=== PATIENT | male | born 1970 | race African-American/Black ===

== ENCOUNTER 2017-07-16 21:50 | Emergency (ER) | payer SELFPAY ==
[~2017-07-16] VITALS: Ht 167.6 cm; Wt 75.0 kg
[2017-07-16 22:05] VITALS: BP 133/76; PULSE 72; RESP 20; TEMP 97.7; O2SAT 97
[2017-07-16] MEDS ORDERED: KETOROLAC TROMETHAMINE 30 MG/ML (IVP) VIAL IV PUSH ONE (22:30)
[2017-07-16] MEDS ORDERED: SODIUM CHLORIDE 0.9% FLUSH 10 ML FLUSH IVF PRN ×2 (22:30→22:45)
[2017-07-16] MEDS ORDERED: CLINDAMYCIN INJ 900 MG in SODIUM CHLORIDE 0.9% INJ 100 ML IV ONE (22:30)
--- NOTE | 2017-07-16 22:33 | PD ---
HPI Chief Complaint: Fall Time Seen by Provider: 22:27 Travel History International Travel<30 days: No Contact w/Intl Traveler<30days: No Traveled to known affect area: No History of Present Illness HPI 46-year-old male presents to the emergency department for complaint of facial swelling and jaw pain after non-syncopal trip and fall yesterday. Patient states he tripped fell forward and landed hitting his right side of the face and jaw. Patient states that he thinks he sustained a large laceration of the tooth may have punctured his skin because there was quite amount of bleeding and jaw pain. Patient states he has been able to remain hydrated drinking fluids and did take ibuprofen 1 dose. Patient's last tetanus immunization was 3 years ago. Patient denies diabetes or any chronic medical conditions and takes no prescription medications. Patient on no blood thinning agents. Patient states he did not injure his neck did not lose consciousness and denies other injury being sustained. Patient presents now for further evaluation rates his pain 8/10 in intensity. Movement and palpation worsened his symptoms and unable to identify alleviating factors PFSH Past Medical History Narrative Medical Negative past medical history negative surgical history positive tobacco use; nursing notes reviewed Medical History: Denies Significant Hx Tetanus Vaccination: Unknown Influenza Vaccination: No Past Surgical History Surgical History: No Previous Surgery Social History Alcohol Use: Yes Tobacco Use: Yes Substance Use: No Allergies-Medications (Allergen,Severity, Reaction): Coded Allergies: No Known Allergies (Unverified , 07/16/17) Reported Meds & Prescriptions Reported Meds & Active Scripts Active Peridex Liq (Chlorhexidine Gluconate (Mouth) Liq) 0.12% Soln 15 Ml SWISH-SPIT BID Augmentin (Amoxicillin-Clavulanate) 875-125 Mg Tab 1 Tab PO BID 10 Days Percocet (Oxycodone-Acetaminophen) 5-325 mg Tab 1 Tab PO Q6H PRN Review of Systems Except as stated in HPI: all other systems reviewed are Neg General / Constitutional: No: Fever, Chills Eyes: No: Visual changes HENT: Positive: Dental Difficulties, Other, No: Headaches, Neck Pain Cardiovascular: No: Chest Pain or Discomfort Respiratory: No: Shortness of Breath Gastrointestinal: No: Vomiting, Abdominal Pain (Mandible pain) Genitourinary: No: Flank Pain Musculoskeletal: No: Pain Skin: No Rash Neurologic: No: Weakness Psychiatric: No: Anxiety Hematologic/Lymphatic: No: Lymph Node Enlargement Physical Exam Narrative GENERAL: Well-developed well-nourished male no acute distress no respiratory distress; GCS 15 SKIN: Warm and dry. HEAD: Normocephalic. EYES: No scleral icterus. No injection or drainage. ENT: Mucous membranes moist airways patent no loose dentition buccal mucosa with subacute 3 cm laceration with macerated and devitalized tissue no active bleeding soft tissue swelling of the right cheek and puncture wound noted at the surface of the right cheek mandible tenderness no deformity. Dentition appears intact. No apparent dental malocclusion. NECK: Supple, trachea midline. No JVD or lymphadenopathy. Trachea is midline with no submandibular mass or lymphadenopathy. CARDIOVASCULAR: Regular rate and rhythm without murmurs, gallops, or rubs. RESPIRATORY: Breath sounds equal bilaterally. No accessory muscle use. GASTROINTESTINAL: Abdomen soft, non-tender, nondistended. MUSCULOSKELETAL: No cyanosis, or edema. BACK: Nontender without obvious deformity. No CVA tenderness. Data Data Last Documented VS Vital Signs Date Time Temp Pulse Resp B/P (MAP) Pulse Ox O2 Delivery O2 Flow Rate FiO2 07/16/17 22:05 97.7 72 20 133/76 (95) 97 Orders Orders Basic Metabolic Panel (Bmp) (07/16/17 22:27) Complete Blood Count With Diff (07/16/17 22:27) Iv Access Insert/Monitor (07/16/17 22:27) Clindamycin Inj (Cleocin Inj) (07/16/17 22:30) Sodium Chloride 0.9% Flush (Ns Flush) (07/16/17 22:30) Ketorolac Inj (Toradol Inj) (07/16/17 22:30) Blood Culture (07/16/17 22:27) Ct Facial Bones W/O Iv Cont (07/16/17 22:33) Sodium Chloride 0.9% Flush (Ns Flush) (07/16/17 22:45) Amoxicil-Clavulanate (Augmentin) (07/17/17 00:00) Ed Discharge Order (07/16/17 23:49) Labs Laboratory Tests Test 07/16/17 22:45 White Blood Count 9.0 TH/MM3 Red Blood Count 5.14 MIL/MM3 Hemoglobin 14.7 GM/DL Hematocrit 43.7 % Mean Corpuscular Volume 84.9 FL Mean Corpuscular Hemoglobin 28.5 PG Mean Corpuscular Hemoglobin Concent 33.6 % Red Cell Distribution Width 13.7 % Platelet Count 271 TH/MM3 Mean Platelet Volume 8.5 FL Neutrophils (%) (Auto) 60.7 % Lymphocytes (%) (Auto) 28.5 % Monocytes (%) (Auto) 9.2 % Eosinophils (%) (Auto) 1.0 % Basophils (%) (Auto) 0.6 % Neutrophils # (Auto) 5.5 TH/MM3 Lymphocytes # (Auto) 2.6 TH/MM3 Monocytes # (Auto) 0.8 TH/MM3 Eosinophils # (Auto) 0.1 TH/MM3 Basophils # (Auto) 0.1 TH/MM3 CBC Comment DIFF FINAL Differential Comment Blood Urea Nitrogen 8 MG/DL Creatinine 0.90 MG/DL Random Glucose 87 MG/DL Calcium Level 9.1 MG/DL Sodium Level 139 MEQ/L Potassium Level 4.3 MEQ/L Chloride Level 103 MEQ/L Carbon Dioxide Level 26.9 MEQ/L Anion Gap 9 MEQ/L Estimat Glomerular Filtration Rate 90 ML/MIN MDM Medical Decision Making Medical Screen Exam Complete: Yes Emergency Medical Condition: Yes Medical Record Reviewed: Yes Interpretation(s) Last Impressions Maxillofacial CT 07/16/172232 Signed Impressions: CONCLUSION: 1. Soft tissue swelling and gas collection adjacent to the right mandible with out definite fracture. CBC & BMP Diagram 07/16/17 22:45 Calcium Level 9.1 Vital Signs Date Time Temp Pulse Resp B/P (MAP) Pulse Ox O2 Delivery O2 Flow Rate FiO2 07/16/17 22:05 97.7 72 20 133/76 (95) 97 Differential Diagnosis Facial abscess, mandible fracture, dental fracture, cellulitis Narrative Course IV access obtained specimens collected and sent for resulting patient administered Toradol 30 mg IV clindamycin 900 mg IV and normal saline [address] facial bones Imaging study shows soft tissue gas and soft tissue swelling mandible does not appear to have a fracture dentition appears intact. Patient given Augmentin 875. Call placed to craniofacial surgeon Dr. Edmonds who recommends patient to see him in his office on Monday at [phone] as well as Augmentin add Peridex solution for oral hygiene Diagnosis Primary Impression: Cutaneous abscess of face Additional Impression: Laceration without foreign body of oral cavity, initial encounter Referrals: Laith Edmonds DMD 2 days Monday morning; [phone] call office to be seen Monday Patient Instructions: General Instructions Additional Instructions: Complete course of antibiotic as prescribed Use oral solution to swish and expectorate for oral hygiene Follow-up with craniofacial surgeon Dr. Edmonds Monday call office [phone] Tylenol every 4 hours as needed for fever 100.4F or greater Ibuprofen every 6-8 hours as needed for fever 100.4F or greater May take pain medication as prescribed as needed for pain greater than 5/10 intensity Return to the emergency department for concerns or change in condition Med/Other Pt SpecificInfo: Prescription(s) given Scripts Oxycodone-Acetaminophen (Percocet) 5-325 mg Tab 1 TAB PO Q6H Y for PAIN, #5 TAB 0 Refills Prov: Elana Conner MD 07/16/17 Chlorhexidine Gluconate (Mouth) Liq (Peridex Liq) 0.12% Soln 15 ML SWISH-SPIT BID, #473 ML 0 Refills Prov: Elana Conner MD 07/16/17 Amoxicillin-Clavulanate (Augmentin) 875-125 Mg Tab 1 TAB PO BID for Infection for 10 Days, #20 TAB 0 Refills Prov: Elana Conner MD 07/16/17 Disposition: 01 DISCHARGE HOME Condition: Stable Elana Conner MD July 16, 2017 22:32
[2017-07-16 22:51] LABS: AUTOMATED NEUTROPHIL # 5.5 TH/MM3 (1.8-7.7); BASOPHIL # 0.1 TH/MM3 (0-0.2); BASOPHIL % 0.6 % (0.0-2.0); EOSINOPHIL # 0.1 TH/MM3 (0-0.4); HEMATOCRIT 43.7 % (39.0-51.0); HEMOGLOBIN 14.7 GM/DL (13.0-17.0); LYMPH % 28.5 % (9.0-44.0); LYMPHOCYTE # 2.6 TH/MM3 (1.0-4.8); MEAN CELL VOLUME 84.9 FL (80.0-100.0); MEAN CORPUSCULAR HEMOGLOBIN 28.5 PG (27.0-34.0); MEAN CORPUSCULAR HGB CONC 33.6 % (32.0-36.0); MEAN PLATELET VOLUME 8.5 FL (7.0-11.0); MONO % 9.2 % (0.0-8.0); MONOCYTE # 0.8 TH/MM3 (0-0.9); NEUT % 60.7 % (16.0-70.0); PLATELET COUNT 271 TH/MM3 (150-450); RED BLOOD COUNT 5.14 MIL/MM3 (4.50-5.90); RED CELL DISTRIBUTION WIDTH 13.7 % (11.6-17.2)
--- NOTE | 2017-07-16 23:23 | RADRPT ---
EXAM DATE: 07/16/2017 11:17 PM EDT AGE/SEX: 46 years / Male INDICATIONS: Trauma; patient fell yesterday; right sided facial swelling. Rule out fracture and bro sridhar tooth. CLINICAL DATA: This is the patient's initial encounter. Patient reports that signs and symptoms have been present for 1 day and indicates a pain score of 5/10. MEDICAL/SURGICAL HISTORY: None. None. RADIATION DOSE: 29.28 CTDI (mGy) COMPARISON: No prior exams available for comparison. TECHNIQUE: Contiguous images in the axial and coronal planes were obtained using helical multirow de tector technique. Using automated exposure control and adjustment of the mA and/or kV according to p atient size, radiation dose was kept as low as reasonably achievable to obtain optimal diagnostic kimberly lity images. FINDINGS: No definite fracture is identified for technique. There is mucous retention cyst within the maxillar y sinuses with mucoperiosteal thickening mainly involving the ethmoid air cells. There is gas with so ft tissue swelling adjacent to the right mandible without definite fracture. Subcentimeter linear shy cification is present adjacent to the left zygomatic arch within the soft tissues chronic in nature. CONCLUSION: 1. Soft tissue swelling and gas collection adjacent to the right mandible without definite fracture. Electronically signed by: Brandon Stock MD 07/16/2017 11:22 PM EDT
[2017-07-16 23:26] LABS: BICARBONATE 26.9 MEQ/L (21.0-32.0); CALCIUM 9.1 MG/DL (8.5-10.1); CREATININE 0.9 MG/DL (0.60-1.30)
[2017-07-16] MEDS ORDERED: PERI0.126 SWISH-SPIT (23:49)
[2017-07-16] MEDS ORDERED: AUGM875T3 PO (23:49)
[2017-07-16] MEDS ORDERED: PERC5TAB12 PO (23:49)
[2017-07-17] MEDS ORDERED: AMOXICILLIN/CLAVULANATE K 875 MG TAB PO ONE
== END 2017-07-17 00:31 | disposition home or self-care (01) ==
LOC: NEPC 21:50
DX: L02.01 Cutaneous abscess of face (principal); S01.512A Laceration without foreign body of oral cavity, initial encounter; W01.0XXA Fall on same level from slipping, tripping and stumbling without subsequent striking against object, initial encounter
CPT/HCPCS: 70486; 80048; 85025; 87040; 96365; 96375; 99285; J1885